=== PATIENT | female | born 1965 | race Caucasian/White ===

== ENCOUNTER → 2020-09-01 | Outpatient (CLI) | payer BC ==
[~2020-09-01] MED LIST: B-100 COMPLEX1 EAC1 PO; CALCIUM +D & M1 EAC1 PO; IBUPROFEN 200200 M1 PO; LEXAPRO20 MG PO; TYLENOL PM PO; VITAMIN D31000 UNI2 PO
== END ==
LOC: LAB 13:30
PROVIDERS: ATTEND Nurse Practitioner
DX: J02.9 Acute pharyngitis, unspecified (principal); R53.83 Other fatigue; Z20.822 Contact with and (suspected) exposure to COVID-19